=== PATIENT | male | born 1995 | race Two or more races ===

== ENCOUNTER 2024-05-13 15:08 | Emergency (ER) | payer OTHER ==
[2024-05-13 15:16] VITALS: BP 130/78; PULSE 76; RESP 18; TEMP 97.9; BMI 37.1
[2024-05-13] MEDS ORDERED: KETOROLAC TROMETHAMINE 30 MG/1 ML VIAL ONE (15:53)
[2024-05-13] MEDS ORDERED: ACETAMINOPHEN 325 MG TABLET (FP) ONE (15:53)
[2024-05-13] MEDS ORDERED: ONDANSETRON *ODT* 4 MG TABLET ONE (16:17)
[2024-05-13] MEDS: ONDANSETRON *ODT* 4 MG TABLET SL ONE (16:17)
[2024-05-13] MEDS: ACETAMINOPHEN 500 MG TABLET (FP) PO ONE (16:27)
[2024-05-13] MEDS: KETOROLAC TROMETHAMINE 30 MG/1 ML VIAL IM ONE (16:27)
== END 2024-05-13 18:03 | disposition home or self-care (01) ==
LOC: JER 15:08
PROC: 3E0233Z Introduction of Anti-inflammatory into Muscle, Percutaneous Approach (ICD-10-PCS; principal; 2024-05-13)
DX: R51.9 Headache, unspecified (principal); R11.10 Vomiting, unspecified
CPT/HCPCS: 70450-TC; 99285-25; Q0162